=== PATIENT | female | born 1955 | race Caucasian/White ===

== ENCOUNTER 2021-09-24 19:17 | Inpatient (IN) ==
[2021-09-24] MEDS ORDERED: Isovue-370 500 ML BOTTLE IVP ONE (20:38)
[2021-09-24] MEDS ORDERED: Morphine Sulfate 2 MG/ML SYRINGE IVP ONE (20:39)
[2021-09-24 20:46] LABS: Basophils % 0.3 %; Eosinophils # 0.1 K/mcL (0.0-0.6); Eosinophils % 1.4 %; Hemoglobin 12.5 g/dL (11.5-15.4); Immature Granulocytes % 0.2 % (0-4); Lymphocytes # 0.8 K/mcL (0.6-4.6); Lymphocytes % 13.7 %; Mean Corpuscular HGB Conc 30.5 g/dL (31.6-35.5); Mean Corpuscular Hemoglobin 29.5 pg (28.0-33.3); Mean Corpuscular Volume 96.7 fL (83.0-100.0); Mean Platelet Volume 10.7 fL (9.4-12.4); Monocytes # 0.4 K/mcL (0.0-1.3); Monocytes % 7.5 %; Neutrophils # 4.4 K/mcL (1.6-8.9); Platelet Count 157 K/mcL (140-400); Red Blood Count 4.24 M/mcL (3.82-4.97); Segmented Neutrophils % 76.9 %; White Blood Count 5.8 K/mcL (4.3-11.1)
[2021-09-24 20:53] LABS: INR 1.1; Prothrombin Time 12.6 Seconds (9.4-12.1)
[2021-09-24 20:56] LABS: Activated Partial Thrombo Time 31.5 Seconds (26.0-36.0)
[2021-09-24] MEDS ORDERED: Furosemide 40 MG/4 ML VIAL IVP ONE (21:39)
[2021-09-24 22:00] LABS: Alanine Aminotransferase 4 Units/L (7-52); Albumin 3.6 g/dL (3.5-5.7); Albumin/Globulin Ratio 1.1 (1.1-2.2); Alkaline Phosphatase 56 Units/L (34-104); Aspartate Amino Transferase 10 Units/L (13-39); BUN/Creatinine Ratio 19 (6-26); Bilirubin,Direct 0.1 mg/dL (0.0-0.2); Bilirubin,Indirect 0.3 mg/dL (0.0-1.0); Bilirubin,Total 0.4 mg/dL (0.3-1.0); Blood Urea Nitrogen 33 mg/dL (8-23); Calcium 8.4 mg/dL (8.6-10.3); Carbon Dioxide 32 mEq/L (23-29); Chloride 107 mEq/L (98-107); Globulin 3.3 g/dL (2.4-3.5); Glucose 125 mg/dL (70-105); Osmolality,Calculated 305 (280-300); Potassium 5.1 mEq/L (3.5-5.1); Sodium 143 mEq/L (136-145); Total Protein 6.9 g/dL (6.4-8.9); Troponin I < 0.03 ng/mL (< 0.04); eGFR For African Americans 34 (> 60); eGFR For Non-African Americans 28 (> 60)
[2021-09-24 22:04] LABS: Influenza A PCR Negative (Negative); Influenza B PCR Negative (Negative); Resp. Syncytial Virus PCR Negative (Negative)
[2021-09-24 22:16] LABS: SARS-CoV-2 by PCR (In House) Negative (Negative)
[2021-09-25] MEDS ORDERED: *HR* OxyCODONE/APAP 10/325 TABLET PO ONE (01:26)
[2021-09-25] MEDS ORDERED: Ondansetron 4 MG/2 ML VIAL IVP PRN (02:03)
[2021-09-25] MEDS ORDERED: *HR* HYDROcodone/Acet 5/325 mg TABLET PO PRN (02:03)
[2021-09-25] MEDS ORDERED: Acetaminophen 325 MG TABLET PO PRN (02:03)
[2021-09-25] MEDS ORDERED: Melatonin 3 MG TABLET PO PRN (02:03)
[2021-09-25] MEDS ORDERED: Naloxone 0.4 MG/ML INJ IVP PRN ×2 (02:03→04:26)
[2021-09-25] MEDS ORDERED: Perflutren Lipid Microsphere 1.3 ML in 0.9 % Sodium Chloride 8.7 ML IVP PRN (02:09)
[2021-09-25] MEDS ORDERED: 0.9 % Sodium Chloride 1,000 ML IVC SCH (02:15)
[2021-09-25 02:37] LABS: Bacteria,Urine Few per hpf (None-Few); Bilirubin,Urine Negative (Negative); Blood,Urine Negative (Negative); Clarity,Urine Clear (Clear); Color,Urine Colorless (Yellow); Glucose,Urine (UA) Normal (Normal); Ketones,Urine Negative (Negative); Leukocyte Esterase,Urine Trace (Negative); Nitrite,Urine Negative (Negative); PH,Urine 6.5 pH Units (5.0-8.0); Protein,Urine Negative (Neg-Trace); RBC,Urine 0-3 per hpf (0-3); Specific Gravity,Urine 1.008 (1.010-1.025); Squamous Epithelial Cell,Urine Few per hpf (None-Few); Urobilinogen,Urine Normal (Normal); WBC,Urine 0-3 per hpf (0-3)
[2021-09-25 05:35] LABS: Hematocrit 39.2 % (35.3-44.9); Hemoglobin 11.8 g/dL (11.5-15.4); Mean Corpuscular HGB Conc 30.1 g/dL (31.6-35.5); Mean Corpuscular Volume 96.3 fL (83.0-100.0); Mean Platelet Volume 10.9 fL (9.4-12.4); Platelet Count 148 K/mcL (140-400); Red Blood Count 4.07 M/mcL (3.82-4.97); Red Cell Distribution Width 13.9 % (11.5-14.5); White Blood Count 4.7 K/mcL (4.3-11.1)
[2021-09-25 05:56] LABS: Albumin 3.7 g/dL (3.5-5.7); Albumin/Globulin Ratio 1.2 (1.1-2.2); Bilirubin,Total 0.4 mg/dL (0.3-1.0); Calcium 8.7 mg/dL (8.6-10.3); Chol/HDL Ratio 3.7 (0-4.9); Globulin 3.2 g/dL (2.4-3.5); Magnesium 1.6 mg/dL (1.6-2.6); Phosphorous 4.3 mg/dL (2.7-4.5); Potassium 4.7 mEq/L (3.5-5.1); Total Protein 6.9 g/dL (6.4-8.9)
[2021-09-25 08:39] LABS: Estimated Average Glucose 134 mg/dl; Hemoglobin A1C 6.3 %
[2021-09-25] MEDS: *HR* OxyCODONE Immed Rel 5 MG TABLET PO PRN ×2 (09:18→20:34)
[2021-09-25] MEDS: Metoprolol 100 MG TABLET PO SCH ×2 (09:18→20:34)
[2021-09-25 10:18] LABS: Sodium, Urine 120.8 mEq/L
[2021-09-25] MEDS: Furosemide 40 MG/4 ML VIAL IVP SCH (11:06)
[2021-09-25 12:22] LABS: Protein/Creatinine Ratio,Urine 0.42 mg/mg (0.00-0.20)
[2021-09-25 12:41] LABS: Complement C3 105 mg/dL (87-200); Uric Acid 8.6 mg/dL (2.3-7.6)
[2021-09-25] MEDS: Cholecalciferol (D-3) 1,000 UNIT (25MCG) TABLET PO SCH (16:43)
[2021-09-25] MEDS: amLODIPine 5 MG TABLET PO SCH (20:34)
[2021-09-25] MEDS: traZODone 50 MG TABLET PO SCH (20:34)
[2021-09-26] MEDS: *HR* OxyCODONE Immed Rel 5 MG TABLET PO PRN ×3 (02:37→22:22)
[2021-09-26 05:56] LABS: Hemoglobin 12.3 g/dL (11.5-15.4); White Blood Count 5.2 K/mcL (4.3-11.1)
[2021-09-26 05:57] LABS: Basophils % 0.6 %; Eosinophils # 0.1 K/mcL (0.0-0.6); Eosinophils % 2.3 %; Hematocrit 42.3 % (35.3-44.9); Immature Granulocytes % 0.2 % (0-4); Lymphocytes # 0.9 K/mcL (0.6-4.6); Lymphocytes % 16.9 %; Mean Corpuscular HGB Conc 29.1 g/dL (31.6-35.5); Mean Corpuscular Hemoglobin 28.6 pg (28.0-33.3); Mean Corpuscular Volume 98.4 fL (83.0-100.0); Mean Platelet Volume 10.8 fL (9.4-12.4); Monocytes # 0.5 K/mcL (0.0-1.3); Neutrophils # 3.7 K/mcL (1.6-8.9); Platelet Count 144 K/mcL (140-400); Red Cell Distribution Width 13.5 % (11.5-14.5)
[2021-09-26 06:23] LABS: Calcium 8.5 mg/dL (8.6-10.3); Magnesium 1.6 mg/dL (1.6-2.6); Phosphorous 4.6 mg/dL (2.7-4.5); Potassium 4.4 mEq/L (3.5-5.1)
[2021-09-26] MEDS: Cholecalciferol (D-3) 1,000 UNIT (25MCG) TABLET PO SCH (09:43)
[2021-09-26] MEDS: Metoprolol 100 MG TABLET PO SCH ×2 (09:43→22:21)
[2021-09-26] MEDS: Furosemide 40 MG/4 ML VIAL IVP SCH (09:44)
[2021-09-26] MEDS ORDERED: cefTRIAXone 2,000 MG in 0.9 % Sodium Chloride 10 ML IVPB SCH (10:00)
[2021-09-26] MEDS ORDERED: Calcium Chloride 1,000 MG in 0.9 % Sodium Chloride 100 ML IVPB ONE (11:08)
[2021-09-26] MEDS: cefTRIAXone 2,000 MG in 0.9 % Sodium Chloride 20 ML IVP SCH (12:29)
[2021-09-26] MEDS: MetroNIDAZOLE 500 MG/100 ML 500 MG/100 ML BAG IVPB SCH ×2 (16:17→23:25)
[2021-09-26] MEDS: *HR* Heparin 5,000 UNIT/ML VIAL SQ SCH ×2 (16:25→22:23)
[2021-09-26] MEDS ORDERED: cefTRIAXone 1,000 MG in 0.9 % Sodium Chloride Mini Bag 100 ML IVPB SCH (18:00)
[2021-09-26] MEDS: traZODone 50 MG TABLET PO SCH (22:21)
[2021-09-26] MEDS: amLODIPine 5 MG TABLET PO SCH (22:21)
[2021-09-27] MEDS: *HR* Heparin 5,000 UNIT/ML VIAL SQ SCH ×2 (04:59→12:41)
[2021-09-27] MEDS: *HR* OxyCODONE Immed Rel 5 MG TABLET PO PRN (06:28)
[2021-09-27 06:40] LABS: Basophils % 0.2 %; Immature Granulocytes % 0.3 % (0-4); Red Cell Distribution Width 13.3 % (11.5-14.5)
[2021-09-27 06:42] LABS: Eosinophils # 0.1 K/mcL (0.0-0.6); Eosinophils % 1.3 %; Hematocrit 43.2 % (35.3-44.9); Immature Platelets 6.5 % (1.1-6.1); Lymphocytes # 0.8 K/mcL (0.6-4.6); Mean Corpuscular HGB Conc 30.1 g/dL (31.6-35.5); Mean Corpuscular Hemoglobin 29.1 pg (28.0-33.3); Mean Corpuscular Volume 96.6 fL (83.0-100.0); Mean Platelet Volume 10.9 fL (9.4-12.4); Monocytes # 0.5 K/mcL (0.0-1.3); Monocytes % 8.6 %; Neutrophils # 4.9 K/mcL (1.6-8.9); Platelet Count 133 K/mcL (140-400); Red Blood Count 4.47 M/mcL (3.82-4.97); Segmented Neutrophils % 77.6 %; White Blood Count 6.3 K/mcL (4.3-11.1)
[2021-09-27 07:06] LABS: Magnesium 1.9 mg/dL (1.6-2.6); Phosphorous 3.5 mg/dL (2.7-4.5); Potassium 4.3 mEq/L (3.5-5.1)
[2021-09-27] MEDS: Metoprolol 100 MG TABLET PO SCH (09:57)
[2021-09-27] MEDS: Cholecalciferol (D-3) 1,000 UNIT (25MCG) TABLET PO SCH (09:57)
[2021-09-27] MEDS: Furosemide 40 MG/4 ML VIAL IVP SCH (10:02)
[2021-09-27] MEDS: cefTRIAXone 2,000 MG in 0.9 % Sodium Chloride 20 ML IVP SCH (10:03)
[2021-09-27] MEDS: MetroNIDAZOLE 500 MG/100 ML 500 MG/100 ML BAG IVPB SCH (10:04)
[2021-09-27 11:56] VITALS: BP 127/78; PULSE 56; TEMP 98.1; O2SAT 96
[2021-09-27 14:26] LABS: ANA IgG by ELISA NONE DETECTED (None Detected); Serine Protease-3 Antibody 3 AU/mL (0-19)
== END 2021-09-27 15:42 | disposition home health service (06) | DRG 682 ==
LOC: 3BNU 19:17 → EMEROOARM 19:17 → SUATTDRO 09-25 02:01 → 3BNU 09-25 03:00 → SUATTDRO 09-25 14:23
PROVIDERS: ADMIT Internal Medicine; ATTEND Internal Medicine